=== PATIENT | female | born 1945 ===

== ENCOUNTER 2020-11-28 13:24 | Outpatient (CLI) | payer OTHER ==
[2020-11-28 20:08] LABS: BILIRUBIN,URINE NEGATIVE (NEGATIVE); GLUCOSE, URINE (UA) NEGATIVE (NEGATIVE); KETONES,URINE (UA) NEGATIVE (NEGATIVE); LEUKOCYTE ESTERASE, URINE SMALL (NEGATIVE); NITRITE,URINE NEGATIVE (NEGATIVE); OCCULT BLOOD,URINE SMALL (NEGATIVE); PROTEIN,URINE TRACE mg/dL (NEGATIVE); UROBILINOGEN,URINE 0.2 (NORMAL) E.U./dL (NORMAL)
[2020-11-28 20:11] LABS: CLARITY,URINE CLEAR (CLEAR)
[2020-11-28 20:15] LABS: BACTERIA,URINE Rare /HPF (None Seen); CRYSTALS,URINE 11-25 Ca Oxalate /LPF; MUCUS,URINE Few Strands; SQUAMOUS EPITHELIAL CELL,UR FEW Squamous (<= Few); WBC,URINE 0-3 /HPF (0-5)
[2020-11-28 20:20] LABS: CREATININE,URINE 91.5 mg/dL; PROTEIN/CREATININE RATIO,URINE 0.3 (<=0.2)
== END 2020-11-28 13:25 | disposition home or self-care (01) ==
LOC: LAB.S 13:24
PROVIDERS: ATTEND Internal Medicine Nephrology
DX: R31.9 Hematuria, unspecified (principal)
CPT/HCPCS: 81001; 81003; 82570; 84156; 87086

== ENCOUNTER 2020-12-08 09:29 | Outpatient (CLI) | payer OTHER ==
[2020-12-08 15:16] LABS: ALBUMIN 4.3 g/dL (3.2-5.5); CALCIUM 9.4 mg/dL (8.5-10.3); CREATININE 0.7 mg/dL (0.4-1.0); PHOSPHORUS 3.9 mg/dL (2.5-4.6); POTASSIUM 3.5 mmol/L (3.5-5.0)
[2020-12-08 15:48] LABS: CREATININE,URINE 175.8 mg/dL; PROTEIN/CREATININE RATIO,URINE 0.1 (<=0.2)
== END 2020-12-08 09:30 | disposition home or self-care (01) ==
LOC: LAB.S 09:29
PROVIDERS: ATTEND Internal Medicine Nephrology
DX: I10 Essential (primary) hypertension (principal); R80.9 Proteinuria, unspecified; R31.9 Hematuria, unspecified
CPT/HCPCS: 36415; 80069; 82570; 83970; 84156

== ENCOUNTER 2021-01-12 09:22 | Outpatient (CLI) | payer OTHER ==
[2021-01-12 14:29] LABS: CHOL/HDL RATIO 4.6 (<4.4); CHOLESTEROL 320 mg/dL; HDL CHOLESTEROL 70 mg/dL; LDL CHOLESTEROL,CALCULATED 216 mg/dL; LDL/HDL RATIO 3.1 (<4.4); TRIGLYCERIDES 171 mg/dL; VLDL CHOLESTEROL 34 mg/dL
== END 2021-01-12 09:23 | disposition home or self-care (01) ==
LOC: LAB.S 09:22
PROVIDERS: ATTEND Internal Medicine Nephrology
DX: I10 Essential (primary) hypertension (principal); R80.9 Proteinuria, unspecified
CPT/HCPCS: 36415; 80061; 83721

== ENCOUNTER 2021-01-16 13:35 | Outpatient (CLI) | payer OTHER ==
[2021-01-16 21:10] LABS: ESTIMATED AVERAGE GLUCOSE 108 mg/dL (70-100); HEMOGLOBIN A1c% 5.4 % (4.27-6.07)
== END 2021-01-16 13:36 | disposition home or self-care (01) ==
LOC: LAB.S 13:35
PROVIDERS: ATTEND Internal Medicine Nephrology
DX: I10 Essential (primary) hypertension (principal)
CPT/HCPCS: 36415; 83036

== ENCOUNTER 2021-03-16 12:34 | Outpatient (CLI) | payer OTHER ==
[2021-03-16 15:26] LABS: ALBUMIN 4.3 g/dL (3.2-5.5); CALCIUM 9.7 mg/dL (8.5-10.3); CREATININE 0.7 mg/dL (0.4-1.0); PHOSPHORUS 3.7 mg/dL (2.5-4.6)
[2021-03-16 15:44] LABS: CREATININE,URINE 33.4 mg/dL; TOTAL PROTEIN,URINE TIMED < 6 mg/dL
[2021-03-16 16:21] LABS: ESTIMATED AVERAGE GLUCOSE 108 mg/dL (70-100); HEMOGLOBIN A1c% 5.4 % (4.27-6.07)
== END 2021-03-16 12:35 | disposition home or self-care (01) ==
LOC: LAB.S 12:34
PROVIDERS: ATTEND Internal Medicine Nephrology
DX: I10 Essential (primary) hypertension (principal); R80.9 Proteinuria, unspecified; R31.9 Hematuria, unspecified
CPT/HCPCS: 36415; 80069; 82570; 83036; 83970; 84156

== ENCOUNTER 2021-07-04 12:14 | Outpatient (CLI) | payer OTHER ==
[2021-07-04 15:19] LABS: BILIRUBIN,URINE NEGATIVE (NEGATIVE); GLUCOSE, URINE (UA) NEGATIVE (NEGATIVE); KETONES,URINE (UA) 15 mg/dL (NEGATIVE); LEUKOCYTE ESTERASE, URINE NEGATIVE (NEGATIVE); NITRITE,URINE NEGATIVE (NEGATIVE); OCCULT BLOOD,URINE SMALL (NEGATIVE); PH,URINE 5.5 PH (5.0-7.5); PROTEIN,URINE NEGATIVE (NEGATIVE); UROBILINOGEN,URINE 0.2 (NORMAL) E.U./dL (NORMAL)
[2021-07-04 15:30] LABS: CLARITY,URINE HAZY (CLEAR)
[2021-07-04 15:31] LABS: CREATININE,URINE 90.3 mg/dL; PROTEIN/CREATININE RATIO,URINE 0.1 (<=0.2)
[2021-07-04 15:33] LABS: ALBUMIN 4.4 g/dL (3.2-5.5); BUN - BLOOD UREA NITROGEN 15 mg/dL (6-20); CALCIUM 9.6 mg/dL (8.5-10.3); CARBON DIOXIDE - CO2 27 mmol/L (21-32); CHLORIDE 99 mmol/L (101-111); CHOL/HDL RATIO 4.1 (<4.4); CHOLESTEROL 314 mg/dL; CREATININE 0.6 mg/dL (0.4-1.0); GFR - MDRD 97 (>89); GLUCOSE 101 mg/dL (70-100); HDL CHOLESTEROL 76 mg/dL; LDL CHOLESTEROL,CALCULATED 208 mg/dL; LDL/HDL RATIO 2.7 (<4.4); PHOSPHORUS 3.3 mg/dL (2.5-4.6); POTASSIUM 3.5 mmol/L (3.5-5.0); SODIUM 137 mmol/L (135-145); TRIGLYCERIDES 148 mg/dL; VLDL CHOLESTEROL 30 mg/dL
[2021-07-04 16:12] LABS: BACTERIA,URINE None Seen /HPF (None Seen); SQUAMOUS EPITHELIAL CELL,UR NONE SEEN (<= Few); WBC,URINE 0-3 /HPF (0-5)
== END 2021-07-04 12:15 | disposition home or self-care (01) ==
LOC: LAB.S 12:14
PROVIDERS: ATTEND Internal Medicine Nephrology
DX: E78.5 Hyperlipidemia, unspecified (principal); I10 Essential (primary) hypertension; R31.29 Other microscopic hematuria
CPT/HCPCS: 36415; 80061; 80069; 81001; 82570; 83721; 84156; 87086

== ENCOUNTER 2021-08-09 12:00 | Outpatient (CLI) | payer OTHER | END 2021-08-09 12:01 | disposition critical access hospital (66) | LOC: EMS 12:00 | DX: R55 Syncope and collapse (principal) | CPT/HCPCS: A0425; A0429 ==

== ENCOUNTER 2021-08-09 12:22 | Emergency (ER) | payer OTHER ==
--- NOTE | 2021-08-09 12:31 | ED Physician Documentation ---
PD HPI SYNCOPE - Stated complaint Stated Complaint: SYNCOPAL EPISODE - History obtained from History obtained from: Patient, EMS - Additional information Additional information: This is a joshua 75-year-old woman with history of benign brain tumor hypertension but no heart problems. She woke up feeling queasy this morning and at work she started to feel weak and dizzy and then had a syncopal episode. She fell from a chair hitting her forehead on the ground reportedly. There was of course loss of consciousness for about 5 seconds. She had a severe headache which is mild now. No other complaints. No chest pain. During exam it was noted that she had a heart murmur, she is not aware of any history of that. Prehospital her blood sugar was normal with no change in orthostatics. Review of Systems Ten Systems: 10 systems reviewed and negative Constitutional: reports: Reviewed and negative Ears: reports: Reviewed and negative Nose: reports: Reviewed and negative Cardiac: denies: Chest pain / pressure, Palpitations Respiratory: denies: Dyspnea, Cough PD PAST MEDICAL HISTORY - Allergies Allergies/Adverse Reactions: Allergies Allergy/AdvReac Type Severity Reaction Status Date / Time acetaminophen [From Vicodin] Allergy Emesis Verified 08/09/21 12:29 aspirin Allergy Emesis Verified 08/09/21 12:29 hydrocodone [From Vicodin] Allergy Emesis Verified 08/09/21 12:29 PD ED PE NORMAL - Vitals Vital signs reviewed: Yes - General General: Alert and oriented X 3, No acute distress - HEENT HEENT: PERRL, EOMI - Neck Neck: Supple, no meningeal sign, No bony TTP - Cardiac Cardiac: RRR, Other (2-3/6 decrescendo murmur LUSB) - Respiratory Respiratory: No respiratory distress, Clear bilaterally - Abdomen Abdomen: Normal bowel sounds, Soft, Non tender - Back Back: No CVA TTP, No spinal TTP - Derm Derm: Normal color, Warm and dry - Extremities Extremities: No edema, No calf tenderness / cord - Neuro Neuro: Alert and oriented X 3, Normal speech Eye Opening: Spontaneous Motor: Obeys Commands Verbal: Oriented GCS Score: 15 - Psych Psych: Normal mood, Normal affect Results - Vitals Vitals: Vital Signs - 24 hr 08/09/21 08/09/21 08/09/21 12:29 12:33 13:31 Temperature 36.5 C 36.5 C 36.8 C Heart Rate 96 96 87 Respiratory 16 16 12 Rate Blood Pressure 144/74 H 144/74 H 144/78 H O2 Saturation 98 98 97 Oxygen O2 Source Room air - EKG (time done) 1232 Rate: Rate (enter#) (95) Rhythm: NSR [place]: Normal Intervals: Normal [place] QRS: Normal Ischemia: Normal ST segments Computer interpretation: Agree with computer - Labs Labs: Laboratory Tests 08/09/21 08/09/21 12:54 12:54 WBC 13.0 H RBC 4.57 Hgb 13.9 Hct 41.5 MCV 90.8 MCH 30.4 MCHC 33.5 RDW 12.6 Plt Count 283 MPV 9.9 Neut # (Auto) 11.3 H Lymph # (Auto) 0.8 L [place] # (Auto) 0.9 Eos # (Auto) 0.0 Baso # (Auto) 0.0 Absolute Nucleated RBC 0.00 Nucleated RBC % 0.0 Sodium 135 Potassium 3.7 Chloride 98 L Carbon Dioxide 26 Anion Gap 11.0 BUN 24 H Creatinine 1.0 Estimated GFR (MDRD) 54 L Glucose 123 H Calcium 9.5 Total Bilirubin 1.0 AST 17 ALT 16 Alkaline Phosphatase 61 Total Protein 8.1 Albumin 4.5 Globulin 3.6 Albumin/Globulin Ratio 1.3 Lipase 33 PD MEDICAL DECISION MAKING - ED course ED course: 75-year-old woman presents with syncope, there was a significant premonition making the risk of this being an arrhythmia less likely. I did notice that she has a heart murmur and she says this is not been worked up yet. No echo available today close follow-up For this was advised. Of note she said she had a similar episode a few months ago Departure - Departure Disposition: Home, Self Care Clinical Impression: Murmur, cardiac Syncope Qualifiers: Syncope type: unspecified Qualified Code(s): R55 - Syncope and collapse Condition: Good Record reviewed to determine appropriate education?: Yes Instructions: ED Fainting Unkn Cause Comments: I did notice today that you have a heart murmur, call your doctor tomorrow, if this is a new issue they will need to schedule you for an echocardiogram (ultrasound of your heart). Drink plenty of fluids, return for new or worsening symptoms. Note to H IM: Please copy this chart to MANE Dougherty, [facility] Discharge Date/Time: 08/09/21 13:37
[2021-08-09 12:58] LABS: BASOPHILS % (AUTO) 0.2 %; EOSINOPHILS % (AUTO) 0.2 %; HCT - HEMATOCRIT 41.5 % (37.0-47.0); HGB - HEMOGLOBIN 13.9 g/dL (12.0-16.0); LYMPHOCYTES # (AUTO) 0.8 10^3/uL (1.5-3.5); LYMPHOCYTES % (AUTO) 6.4 %; MEAN CORPUSCULAR HEMOGLOBIN 30.4 pg (27.0-31.0); MEAN CORPUSCULAR HGB CONC 33.5 g/dL (32.0-36.0); MEAN CORPUSCULAR VOLUME 90.8 fL (81.0-99.0); MEAN PLATELET VOLUME 9.9 fL (7.9-10.8); MONOCYTES # (AUTO) 0.9 10^3/uL (0.0-1.0); MONOCYTES % (AUTO) 6.6 %; NEUTROPHILS # (AUTO) 11.3 10^3/uL (1.5-6.6); NEUTROPHILS % (AUTO) 86.4 %; PLT - PLATELET COUNT 283 10^3/uL (130-450); RED BLOOD COUNT 4.57 10^6/uL (4.20-5.40); RED CELL DISTRIBUTION WIDTH 12.6 % (12.0-15.0)
--- NOTE | 2021-08-09 13:06 | CT Report ---
PROCEDURE: HEAD WO INDICATIONS: head injury TECHNIQUE: Noncontrast 4.5 mm thick angled axial sections acquired from the foramen magnum to the vertex. For r adiation dose reduction, the following was used: automated exposure control, adjustment of mA and/or kV according to patient size. COMPARISON: None. FINDINGS: Image quality: Excellent. CSF spaces: Basal cisterns are patent. No extra-axial fluid collections. Ventricles are normal in size and shape. Brain: There is a densely calcified extra-axial mass seen along the anterior falx inferiorly that me asures approximately 400 Hounsfield units and 3 cm. No midline shift. No intracranial masses or hemorrhage. Mtz-white matter interface is normal. Skull and face: Calvarium and visualized facial bones are intact, without suspicious lesions. Sinuses: Visualized sinuses and mastoids are clear. IMPRESSION: No acute intracranial hemorrhage is seen. No calvarial fracture is seen. No significant intracranial abnormality is seen. 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 Note: Case discussed by telephone with Dr. Quinn at 11:52 AM on 08/09/2021. Dr. Quinn gives the kyle tional history that the patient has a known benign intracranial mass. Reviewed by: Bandar Saenz MD on 08/09/2021 12:05 PM CLAIRE Approved by: Bandar Saenz MD on 08/09/2021 12:05 PM CLAIRE Station ID: [id number]
[2021-08-09 13:11] LABS: ALBUMIN 4.5 g/dL (3.2-5.5); ALBUMIN/GLOBULIN RATIO 1.3 (1.0-2.2); CALCIUM 9.5 mg/dL (8.5-10.3); POTASSIUM 3.7 mmol/L (3.5-5.0); TOTAL PROTEIN 8.1 g/dL (6.7-8.2)
[2021-08-09 13:32] VITALS: BP 144/78
== END 2021-08-09 13:37 | disposition home or self-care (01) ==
LOC: EDUNIT# → ED 12:22
DX: R55 Syncope and collapse (principal); R01.1 Cardiac murmur, unspecified
CPT/HCPCS: 1040M; 36415; 70450; 80053; 83690; 85025; 93005; 99284

== ENCOUNTER 2021-10-19 13:06 | Outpatient (CLI) | payer OTHER ==
[2021-10-19 20:28] LABS: BUN - BLOOD UREA NITROGEN 14 mg/dL (6-20); CALCIUM 9.5 mg/dL (8.5-10.3); CARBON DIOXIDE - CO2 29 mmol/L (21-32); CHLORIDE 101 mmol/L (101-111); CHOL/HDL RATIO 3.9 (<4.4); CHOLESTEROL 283 mg/dL; CREATININE 0.7 mg/dL (0.4-1.0); GFR - MDRD 82 (>89); GLUCOSE 93 mg/dL (70-100); HDL CHOLESTEROL 73 mg/dL; LDL CHOLESTEROL,CALCULATED 173 mg/dL; LDL/HDL RATIO 2.4 (<4.4); PHOSPHORUS 3.4 mg/dL (2.5-4.6); POTASSIUM 3.8 mmol/L (3.5-5.0); SODIUM 139 mmol/L (135-145); TRIGLYCERIDES 186 mg/dL; VLDL CHOLESTEROL 37 mg/dL
[2021-10-20 20:17] LABS: BILIRUBIN,URINE NEGATIVE (NEGATIVE); GLUCOSE, URINE (UA) NEGATIVE (NEGATIVE); KETONES,URINE (UA) NEGATIVE (NEGATIVE); LEUKOCYTE ESTERASE, URINE LARGE (NEGATIVE); NITRITE,URINE NEGATIVE (NEGATIVE); OCCULT BLOOD,URINE SMALL (NEGATIVE); PROTEIN,URINE NEGATIVE (NEGATIVE); UROBILINOGEN,URINE 0.2 (NORMAL) E.U./dL (NORMAL)
[2021-10-20 20:19] LABS: CREATININE,URINE 135.8 mg/dL; PROTEIN/CREATININE RATIO,URINE 0.1 (<=0.2)
[2021-10-20 20:43] LABS: CLARITY,URINE HAZY (CLEAR); WBC CLUMPS,URINE PRESENT
[2021-10-20 20:44] LABS: BACTERIA,URINE Few /HPF (None Seen); RBC,URINE 0-5 /HPF (0-5); SQUAMOUS EPITHELIAL CELL,UR FEW Squamous (<= Few)
== END 2021-10-19 13:07 | disposition home or self-care (01) ==
LOC: LAB.S 13:06
PROVIDERS: ATTEND Internal Medicine Nephrology
DX: E78.5 Hyperlipidemia, unspecified (principal)
CPT/HCPCS: 36415; 80061; 80069; 81001; 82570; 83721; 84156; 87086

== ENCOUNTER 2022-03-29 13:44 | Outpatient (CLI) | payer OTHER, MEDICARE ==
[2022-03-29 19:55] LABS: BASOPHILS % (AUTO) 0.6 %; EOSINOPHILS # (AUTO) 0.1 10^3/uL (0.0-0.7); EOSINOPHILS % (AUTO) 1.7 %; HCT - HEMATOCRIT 43.8 % (37.0-47.0); LYMPHOCYTES # (AUTO) 1.5 10^3/uL (1.5-3.5); LYMPHOCYTES % (AUTO) 21.3 %; MEAN CORPUSCULAR HEMOGLOBIN 29.8 pg (27.0-31.0); MEAN CORPUSCULAR VOLUME 93.2 fL (81.0-99.0); MEAN PLATELET VOLUME 10.7 fL (7.9-10.8); MONOCYTES # (AUTO) 0.6 10^3/uL (0.0-1.0); MONOCYTES % (AUTO) 7.8 %; NEUTROPHILS % (AUTO) 68.5 %; PLT - PLATELET COUNT 293 10^3/uL (130-450); RED CELL DISTRIBUTION WIDTH 12.5 % (12.0-15.0); WHITE BLOOD COUNT 7.2 x10^3/uL (4.8-10.8)
[2022-03-29 20:09] LABS: ALBUMIN 4.1 g/dL (3.2-5.5); CALCIUM 10.2 mg/dL (8.5-10.3); CREATININE 0.8 mg/dL (0.4-1.0); PHOSPHORUS 3.5 mg/dL (2.5-4.6); POTASSIUM 3.9 mmol/L (3.5-5.0); URIC ACID 5.7 mg/dL (2.6-7.2)
== END 2022-03-29 13:45 | disposition home or self-care (01) ==
LOC: LAB.S 13:44
PROVIDERS: ATTEND Internal Medicine Nephrology
DX: I15.2 Hypertension secondary to endocrine disorders (principal); R31.29 Other microscopic hematuria
CPT/HCPCS: 36415; 80069; 82570; 83970; 84156; 84550; 85025

== ENCOUNTER 2022-04-05 08:00 | Outpatient (CLI) | payer OTHER, MEDICARE ==
[2022-04-05 21:03] LABS: CREATININE,URINE 148.6 mg/dL
== END 2022-04-05 23:59 | disposition home or self-care (01) ==
LOC: LAB.R 08:00
PROVIDERS: ATTEND Internal Medicine Nephrology
DX: I15.2 Hypertension secondary to endocrine disorders (principal); R31.29 Other microscopic hematuria
CPT/HCPCS: 82570; 84156

== ENCOUNTER 2022-12-20 10:25 | Outpatient (CLI) | payer OTHER ==
[2022-12-20 15:01] LABS: THYROID STIMULATING HORMONE 2.31 uIU/mL (0.34-5.60)
== END 2022-12-20 10:26 | disposition home or self-care (01) ==
LOC: LAB.S 10:25
PROVIDERS: ATTEND Student in an Organized Health Care Education/Training Program
DX: E04.2 Nontoxic multinodular goiter (principal)
CPT/HCPCS: 36415; 84439; 84443

== ENCOUNTER 2023-02-28 08:50 | Outpatient (CLI) | payer OTHER ==
--- NOTE | 2023-02-28 16:30 | XRAY Report ---
PROCEDURE: Chest 2 View X-Ray INDICATIONS: PRODUCTIVE COUGH TECHNIQUE: 2 views of the chest were acquired. COMPARISON: None. FINDINGS: Surgical changes and devices: None. Lungs and pleura: No pleural effusions or pneumothorax. Lungs are clear. Mediastinum: Mediastinal contours appear normal. Heart size is normal. Bones and chest wall: No suspicious bony lesions. Overlying soft tissues appear unremarkable. IMPRESSION: No acute cardiopulmonary process. No focal consolidation. Reviewed by: Dillon Carrizales MD on 02/28/2023 4:29 PM PDT Approved by: Dillon Carrizales MD on 02/28/2023 4:29 PM PDT Station ID: [id number]
== END 2023-02-28 23:59 | disposition home or self-care (01) ==
LOC: DI.S 08:50
PROVIDERS: ATTEND Physician Assistant
DX: R05.8 Other specified cough (principal)